=== PATIENT | male | born 1955 | race Caucasian/White ===

== ENCOUNTER 2018-09-26 10:58 | Observation (INO) | payer OTHER ==
[~2018-09-26] VITALS: Ht 193 cm; Wt 135.2 kg
[2018-09-26] VITALS (8 sets, daily range): BP systolic 106–146; BP diastolic 61–91
[2018-09-26] MEDS ORDERED: NITROGLYCERIN 0.4 MG SL TABS BTL 25'S SL ONE (10:59)
[2018-09-26] MEDS: NITROGLYCERIN 0.4 MG SL TABS BTL 25'S SL PRN ×2 (11:06→11:13)
[2018-09-26] MEDS ORDERED: ASPIRIN 81 MG CHEW (CHILDREN'S ASA) PO ONE (11:15)
[2018-09-26 11:22] LABS: HEMATOCRIT 45 % (40-54); HEMOGLOBIN 15.6 G/DL (13.3-17.7); MEAN CORPUSCULAR HEMOGLOBIN 31 PG (25-34); MEAN CORPUSCULAR HGB CONC 35 G/DL (32-36); MEAN CORPUSCULAR VOLUME 89 FL (80-99); PLATELET COUNT 162 10^3/uL (130-400); WHITE BLOOD COUNT 5.3 10^3/uL (4.3-11.0)
--- NOTE | 2018-09-26 11:22 | ED Chest Pain ---
General Chief Complaint: Chest Pain Stated Complaint: CHEST PAIN History of Present Illness Date Seen by Provider: September 26, 2018 Time Seen by Provider: 11:05 Initial Comments This is a 63 y/o m who presents to the ED for evaluation of chest pain. Pt with history of obesity, DMII, HTN, CAD s/p stent (2-3 years ago). Reports chest tightness/pain with activity and improved with rest over the past 7-10 days. Onset of chest pain with light activity today at approx 0930. Progressive with exertion, radiates up to bilateral neck and bilateral arms. Pain is now 7/10, no SOB. no nausea, no vomiting, no diarrhea. Allergies and Home Medications Allergies Coded Allergies: No Known Drug Allergies (Unverified , 09/26/18) Patient Home Medication List Home Medication List Reviewed: Yes Review of Systems Review of Systems Constitutional: No chills, No fever, No weakness Respiratory: Denies Cough, Denies Shortness of Air; SOA With Exertion; Denies SOA at Rest, Denies Stridor, Denies Wheezing Cardiovascular: Chest Pain; Denies Edema, Denies Irregular Heart Rate, Denies Lightheadedness, Denies Palpitations, Denies Syncope Gastrointestinal: Denies Abdominal Pain, Denies Constipated, Denies Diarrhea, Denies Nausea Musculoskeletal: No back pain; joint pain Skin: No pruritus, No rash Psychiatric/Neurological: No Symptoms Reported Endocrine: No Symptoms Reported All Other Systems Reviewed Negative Unless Noted: Yes Physical Exam Vital Signs Vital Signs - First Documented 09/26/18 11:03 Temp 98.4 Pulse 84 Resp 23 B/P (MAP) 186/78 (114) O2 Delivery Room Air Capillary Refill : Height, Weight, BMI Height: '" Weight: lbs. oz. kg; BMI Method: General Appearance: Mild Distress, Obese HEENT: PERRL/EOMI Neck: Full Range of Motion Respiratory: Lungs Clear, Normal Breath Sounds, No Accessory Muscle Use, No Respiratory Distress Cardiovascular: Regular Rate, Rhythm, No JVD, No Murmur, Normal Peripheral Pulses Gastrointestinal: Non Tender, Soft, Other (Exam limited by obesity ) Extremity: Normal Capillary Refill Neurologic/Psychiatric: Alert, Oriented x3, No Motor/Sensory Deficits, Normal Mood/Affect Skin: Normal Color, Warm/Dry Progress/Results/Core Measures Results/Orders Lab Results Laboratory Tests Test 09/26/18 11:09 Range/Units White Blood Count 5.3 4.3-11.0 10^3/uL Red Blood Count 5.01 4.35-5.85 10^6/uL Hemoglobin 15.6 13.3-17.7 G/DL Hematocrit 45 40-54 % Mean Corpuscular Volume 89 80-99 FL Mean Corpuscular Hemoglobin 31 25-34 PG Mean Corpuscular Hemoglobin Concent 35 32-36 G/DL Red Cell Distribution Width 13.0 10.0-14.5 % Platelet Count 162 130-400 10^3/uL Mean Platelet Volume 10.6 H 7.4-10.4 FL Neutrophils (%) (Auto) 63 42-75 % Lymphocytes (%) (Auto) 24 12-44 % Monocytes (%) (Auto) 11 0-12 % Eosinophils (%) (Auto) 1 0-10 % Basophils (%) (Auto) 1 0-10 % Neutrophils # (Auto) 3.3 1.8-7.8 X 10^3 Lymphocytes # (Auto) 1.3 1.0-4.0 X 10^3 Monocytes # (Auto) 0.6 0.0-1.0 X 10^3 Eosinophils # (Auto) 0.1 0.0-0.3 10^3/uL Basophils # (Auto) 0.0 0.0-0.1 10^3/uL Sodium Level 136 135-145 MMOL/L Potassium Level 4.2 3.6-5.0 MMOL/L Chloride Level 98 98-107 MMOL/L Carbon Dioxide Level 27 21-32 MMOL/L Anion Gap 11 5-14 MMOL/L Blood Urea Nitrogen 18 7-18 MG/DL Creatinine 0.83 0.60-1.30 MG/DL Estimat Glomerular Filtration Rate > 60 BUN/Creatinine Ratio 22 Glucose Level 277 H 70-105 MG/DL Calcium Level 9.5 8.5-10.1 MG/DL Troponin T 29 H <=15 NG/L My Orders Orders - WILL GALVEZ DO Nitroglycerin 0.4 Mg Btl 25's (Nitrostat (09/26/18 10:59) Continuous Ekg Monitoring (09/26/18 11:11) Basic Metabolic Panel (09/26/18 11:11) Cbc And Manual Diff (5/31/19 11:11) Troponin T (09/26/18 11:11) Chest 1 View Ap/Pa Only (09/26/18 11:11) Ekg Tracing (09/26/18 11:11) Aspirin Chewable Tablet (Baby Aspirin Ch (09/26/18 11:15) Nitroglycerin 0.4 Mg Btl 25's (Nitrostat (09/26/18 11:15) Medications Given in ED Current Medications Medications Dose Ordered Sig/Scooter Route Start Time Stop Time Status Last Admin Dose Admin Aspirin 324 mg ONCE ONCE PO 09/26/18 11:15 09/26/18 11:17 DC 09/26/18 11:22 324 MG Nitroglycerin 0.4 mg NEEDED PRN SL 09/26/18 11:15 09/26/18 11:13 0.4 MG Vital Signs/I&O 09/26/18 11:03 Temp 98.4 Pulse 84 Resp 23 B/P (MAP) 186/78 (114) O2 Delivery Room Air Progress Progress Note : Progress Note 11:24 Resolution of pain with NTG 0.4 x 2. Will plan for hospitalization. No EKG changes. Pending completion of labs. 11:55: Has remained chest pain free while in the ED. Mild elevation of Troponin T. Discussed with Dr. Jones, cardiovascular surgeon hospitalist at [facility] who is agreeable to admission with floor Tele bed. Requested that I speak with Dr. Lynch. Spoke with Dr. Lynch, cardiovascular surgeon [employer]. Requested that the pt be kept NPO. Arranging transportation for hospitalization. EKG : Comment 11:04: NSR, No ST segment changes. Diagnostic Imaging Diagonstic Imaging: Xray Plain Films/CT/US/NM/MRI: chest Comments No acute findings Departure Impression Primary Impression: Chest pain Disposition: ADMITTED INPATIENT Condition: Improved Admissions Decision to Admit Reason: Admit from ER (General) Decision to Admit/Date: September 26, 2018 Time/Decision to Admit Time: 11:55 WILL GALVEZ DO September 26, 2018 11:22
[2018-09-26 11:23] LABS: BASOPHILS % (AUTO) 1 % (0-10); EOSINOPHILS # (AUTO) 0.1 10^3/uL (0.0-0.3); EOSINOPHILS % (AUTO) 1 % (0-10); LYMPHOCYTES # (AUTO) 1.3 X 10^3 (1.0-4.0); LYMPHOCYTES % (AUTO) 24 % (12-44); MEAN PLATELET VOLUME 10.6 FL (7.4-10.4); MONOCYTES # (AUTO) 0.6 X 10^3 (0.0-1.0); MONOCYTES % (AUTO) 11 % (0-12); NEUTROPHILS # (AUTO) 3.3 X 10^3 (1.8-7.8); NEUTROPHILS % (AUTO) 63 % (42-75)
--- NOTE | 2018-09-26 11:35 | Diagnostic Imaging Report ---
Patient History: Chest pain and left arm pain and left jaw pain. Technique: Single frontal view of the chest Comparison: None FINDINGS: The lung volumes are normal. No focal consolidation is seen. Circumscribed round density overlying the right chest appears to have 4 central lucencies on the repeat radiograph, most consistent with a button. No large pleural effusion or pneumothorax is seen. The cardiomediastinal silhouette is normal in size and contour. No acute osseous abnormality is seen. IMPRESSION: No acute pulmonary abnormality seen. Dictated by: Dictated on workstation # [id number]
[2018-09-26 11:44] LABS: BUN/CREATININE RATIO 22; CALCIUM 9.5 MG/DL (8.5-10.1); CARBON DIOXIDE 27 MMOL/L (21-32); CHLORIDE 98 MMOL/L (98-107); CREATININE SERUM 0.83 MG/DL (0.60-1.30); GFR ESTIMATED > 60; GLUCOSE 277 MG/DL (70-105); POTASSIUM 4.2 MMOL/L (3.6-5.0); SODIUM 136 MMOL/L (135-145)
[2018-09-26 12:08] LABS: BAND NEUTROPHILS 0 %; BASOPHILS % (MANUAL) 1 %; EOSINOPHILS % (MANUAL) 1 %; LYMPHOCYTES % (MANUAL) 30 %; MONOCYTES % (MANUAL) 6 %; NEUTROPHILS % (MANUAL) 62 %
--- NOTE | 2018-09-26 13:40 | NUR ---
[address] admitted to room 418-1, with an admitting diagnosis of CHEST PAIN , on 09/26/18 from [facility] via EMS, accompanied by EMS STAFF. [address] introduced to surroundings, call light, bed controls, phone, TV, temperature control, lights, meal times, smoking policy, visitor policy, side rail policy, bathrooms and showers. Patient Rights given to patient in the handbook. [address] verbalizes understanding that [facility] is not responsible for the loss or damage to any personal effects or valuables that are kept in the patients posession during their hospitalization. [address] verbalizes understanding of Interdisciplinary Patient Education. Patient and/or family were informed about the Rapid Response Team and its purpose.
[2018-09-26] MEDS ORDERED: NS IV 1000 ML 1,000 ML ONE (13:48)
[2018-09-26] MEDS ORDERED: LIDOCAINE 1% INJ 20 ML 20 ML VIAL ONE (13:51)
[2018-09-26] MEDS ORDERED: HEParin (CATH LAB) 2,000 ML IV ONE (13:51)
[2018-09-26] MEDS ORDERED: MIDAZOLAM 5 MG/5 ML (VERSED) VIAL ONE (13:57)
[2018-09-26] MEDS ORDERED: fentaNYL INJECTION 100 MCG/2 ML AMP ONE (13:57)
--- NOTE | 2018-09-26 14:02 | Consultation-Cardiology ---
HPI-Cardiology Cardiology Consultation Date of Consultation 09/26/18 Date of Admission Time Seen by Provider: 13:58 Indication: chest pain HPI 63 years old gentleman with history of coronary artery disease, had stent done in 2007. Hypertension, hyperlipidemia and diabetes mellitus. Was in his usual state of health until the past week when he noted some back pain with exertion, reported pain similar to the pain prior to his stent. Had another episode of back pain this morning went to the chiropractor. Then started to have chest pain described as dull achiness in the retrosternal area radiating to the left shoulder and left arm. Associated with diaphoresis. Patient came to the emergency room and reported improvement after receiving sublingual nitrogly cerin. Currently having mild chest discomfort, about one to 2/10 in the retrosternal area. Home Medications & Allergies Allergies: Coded Allergies: No Known Drug Allergies (Unverified , 09/26/18) Home Medication List Reviewed: Yes QNT-Qmmjyb-Fabxyp Hx Patient Social History Marital Status: Employed/Student: employed Alcohol Use: Occasionally Uses Recreational Drug Use: No Smoking Status: Never a Smoker 2nd Hand Smoke Exposure: Yes Recent Foreign Travel: No Recent Infectious Disease Expo: No Recent Hopitalizations: No Past Medical History discussed below Family Medical History Family Medical Hx family history of hypertension Review of Systems-General Review of Systems Constitutional: see HPI; No chills; diaphoresis; No fever; malaise; No weakness EENTM: see HPI, no symptoms reported Respiratory: see HPI, dyspnea on exertion, short of breath Cardiovascular: see HPI, chest pain, edema; No Hx of Intervention, No palpitations, No syncope, No vascular heart diseas, No other Gastrointestinal: no symptoms reported, see HPI Genitourinary: no symptoms reported, see HPI Musculoskeletal: see HPI; No back pain; joint pain Skin: see HPI; No pruritus, No rash Psychiatric/Neurological: No Symptoms Reported, See HPI All Other Systems Reviewed Negative Unless Noted: Yes Reviewed Test Results Reviewed Test Results Lab Laboratory Tests Test 09/26/18 11:09 Range/Units White Blood Count 5.3 4.3-11.0 10^3/uL Red Blood Count 5.01 4.35-5.85 10^6/uL Hemoglobin 15.6 13.3-17.7 G/DL Hematocrit 45 40-54 % Mean Corpuscular Volume 89 80-99 FL Mean Corpuscular Hemoglobin 31 25-34 PG Mean Corpuscular Hemoglobin Concent 35 32-36 G/DL Red Cell Distribution Width 13.0 10.0-14.5 % Platelet Count 162 130-400 10^3/uL Mean Platelet Volume 10.6 H 7.4-10.4 FL Neutrophils (%) (Auto) 63 42-75 % Lymphocytes (%) (Auto) 24 12-44 % Monocytes (%) (Auto) 11 0-12 % Eosinophils (%) (Auto) 1 0-10 % Basophils (%) (Auto) 1 0-10 % Neutrophils # (Auto) 3.3 1.8-7.8 X 10^3 Lymphocytes # (Auto) 1.3 1.0-4.0 X 10^3 Monocytes # (Auto) 0.6 0.0-1.0 X 10^3 Eosinophils # (Auto) 0.1 0.0-0.3 10^3/uL Basophils # (Auto) 0.0 0.0-0.1 10^3/uL Neutrophils % (Manual) 62 % Lymphocytes % (Manual) 30 % Monocytes % (Manual) 6 % Eosinophils % (Manual) 1 % Basophils % (Manual) 1 % Band Neutrophils 0 % Sodium Level 136 135-145 MMOL/L Potassium Level 4.2 3.6-5.0 MMOL/L Chloride Level 98 98-107 MMOL/L Carbon Dioxide Level 27 21-32 MMOL/L Anion Gap 11 5-14 MMOL/L Blood Urea Nitrogen 18 7-18 MG/DL Creatinine 0.83 0.60-1.30 MG/DL Estimat Glomerular Filtration Rate > 60 BUN/Creatinine Ratio 22 Glucose Level 277 H 70-105 MG/DL Calcium Level 9.5 8.5-10.1 MG/DL Troponin T 29 H <=15 NG/L Physical Exam Physical Exam Vital Signs Vital Signs - First Documented 09/26/18 09/26/18 09/26/18 11:03 12:58 13:59 Temp 98.4 Pulse 84 Resp 23 B/P (MAP) 186/78 (114) Pulse Ox 97 O2 Delivery Room Air O2 Flow Rate 0.00 Capillary Refill : Less Than 3 Seconds Height, Weight, BMI Height: 6'4.00" Weight: 295lbs. oz. 133.572217gv; BMI Method:Stated General Appearance: WD/WN, Mild Distress, Obese Eyes: Bilateral Eye Normal Inspection, Bilateral Eye PERRL, Bilateral Eye EOMI HEENT: PERRL/EOMI Neck: Full Range of Motion Respiratory: Lungs Clear, Normal Breath Sounds, No Accessory Muscle Use, No Respiratory Distress Cardiovascular: Regular Rate, Rhythm, No JVD, No Murmur, Normal Peripheral Pulses Gastrointestinal: Non Tender, Soft, Other (Exam limited by obesity ) Back: Normal Inspection, No CVA Tenderness, No Vertebral Tenderness Extremity: Normal Capillary Refill Neurologic/Psychiatric: Alert, Oriented x3, No Motor/Sensory Deficits, Normal Mood/Affect Skin: Normal Color, Warm/Dry Lymphatic: No Adenopathy A/P-Cardiology Admission Diagnosis Unstable angina Coronary artery disease Hypertension Hyperlipidemia Assessment/Plan Unstable angina responsive to sublingual nitroglycerin, no acute EKG changes. Having mild discomfort pain at this point. Cannot proceed with a stress test due to the active chest pain I will proceed with urgent cardiac catheterization possible PTCA. Coronary artery disease, history of a stent done in 2007, has been following with Dr. Al. Hypertension, restart home medication monitor blood pressure Hyperlipidemia, monitor lipids Diabetes mellitus, followed and managed by primary care physician Obesity, BMI 35, we discussed weight loss and exercis Clinical Quality Measures AMI/AHF: ASA po Prior to arrival: NICKO Davis MD September 26, 2018 14:02
--- NOTE | 2018-09-26 14:02 | Cardiac Procedure Note-CS/ASA ---
Pre-Procedure Note Pre-Op Procedure Note H&P Reviewed The H&P was reviewed, patient examined and no changes noted. Date H&P Reviewed: September 26, 2018 Time H&P Reviewed: 14:02 Conscious Sedation Pre-Proced Time 14:02 ASA Score 3 For ASA 3 and 4: Consider anesthesia and medical clearance. Also, for patients with a history of failed moderate sedation consider anesthesia. Airway Lungs Heart ASA score ASA 1: a normal healthy patient ASA 2: a patient with a mild systemic disease (mid diabetes, controlled hypertension, obesity x ASA 3: a patient with a severe systemic disease that limits activity (angina, COPD, prior Myocardial infarction) ASA 4: a patient with an incapacitating disease that is a constant threat to life (CHF, renal failure) ASA 5: a moribund patient not expected to survive 24 hrs. (ruptured aneurysm) ASA 6: a declared brain- patient whose organs are being harvested. For emergent operations, add the letter E after the classification Mallampati Classification Grade 3 Sedation Plan Analgesia, Amnesia, Plan communicated to team members, Discussed options with patient/fam, Discussed risks with patient/fam The patient is an appropriate candidate to undergo the planned procedure, sedation, and anesthesia. The patient immediately re-assessed prior to indication. NICKO THAKUR MD September 26, 2018 14:02
--- NOTE | 2018-09-26 14:05 | NUR ---
Consent obtained for heart cath.
[2018-09-26] MEDS ORDERED: ATOR80TA64 PO (14:14)
[2018-09-26] MEDS ORDERED: GLIP-173 PO (14:14)
[2018-09-26] MEDS ORDERED: SULI150T PO (14:14)
[2018-09-26] MEDS ORDERED: LEVO50TA6 PO (14:14)
[2018-09-26] MEDS ORDERED: LISI-556 PO (14:14)
[2018-09-26] MEDS ORDERED: SERT100T8 PO (14:14)
[2018-09-26] MEDS ORDERED: ASPI-983 PO (14:14)
[2018-09-26] MEDS ORDERED: GLUC1TAB20 PO (14:14)
[2018-09-26] MEDS ORDERED: MULT1TAB69 PO (14:14)
[2018-09-26] MEDS ORDERED: NS IV 1000 ML 1,000 ML IV SCH ×2 (14:15→15:06)
[2018-09-26] MEDS ORDERED: morphine INJ 4 MG/ML 1 ML (VIAL/SYRINGE) IV PRN (14:15)
[2018-09-26] MEDS ORDERED: CATHETER FLUSH 10 ML SYR IV PRN (14:15)
[2018-09-26] MEDS ORDERED: NITROGLYCERIN 0.4 MG SL TABS BTL 25'S SL PRN (14:15)
--- NOTE | 2018-09-26 14:17 | NUR ---
Pt to labor representative
[2018-09-26] MEDS ORDERED: [UNRECOGNIZED DRUG - OTHER] (14:18)
[2018-09-26 14:24] LABS: INR 1.1 (0.8-1.4); PROTHROMBIN TIME PATIENT 14.2 SEC (12.2-14.7)
[2018-09-26] MEDS ORDERED: NITRO DRIP 25000 MCG/D5W 250 ML IV ONE (14:37)
[2018-09-26] MEDS ORDERED: HEParin 1000 UNIT/ML (10ML VIAL) FOR BOLUS ONE (14:37)
[2018-09-26] MEDS ORDERED: EPTIFIBATIDE BOLUS 20 ML IV ONE (14:46)
[2018-09-26] MEDS ORDERED: EPTIFIBATIDE BOLUS 10 ML IV ONE (14:51)
[2018-09-26] MEDS ORDERED: TICAGRELOR 90 MG TABLET (BRILINTA) PO ONE (15:07)
[2018-09-26] MEDS ORDERED: PATIENT MAY USE OWN MEDS, ALL PO SCH (15:15)
--- NOTE | 2018-09-26 15:15 | Cardiac Cath Report ---
Cardiac Cath Report Physician (s)/Hide Curer (s) Physician NICKO THAKUR MD Pre-Procedure Diagnosis Pre-Procedure Diagnosis: unstable angina Post-Procedure Note Procedure Start Date: September 26, 2018 Name of Procedure: Left heart catheterization Left ventriculogram Bare-metal stent to the distal LAD 2 x 12 mm mini vision Drug-eluting stent to the mid to distal LAD not overlapping with percent 2.5 x 18 Dania Findings/Procedure Note PROCEDURE NOTE: 63 years old gentleman was admitted from [place] emergency room for unstable angina, was having active chest pain, reporting some improvement with nitroglycerin but still having active chest pain. Decided to proceed with emergency cardiac catheterization. After explaining the procedure to the patient, all pros and cons were explained, all questions were answered. The patient signed the consent and then he was placed on the cardiac catheterization laboratory. Groin was prepped SL fashion local anesthesia was used. Sheath placed in the right femoral artery. Florecita right and left catheter were used to access the coronary system. Pigtail was used to access the left ventricular cavity. Left ventriculogram was done Patient was given 7000 units of heparin, FL guide was advanced to the left coronary system BMW wire was advanced through the left system and parked distally, patient was noted to have severe stenosis at the distal portion of the LAD was almost occluded with the wire only. I proceeded carefully with positioning a small stent bare metal stent 2 x 12 mini vision expanded to 2.15 with good results, proximal to that there was another lesion that appeared to be significant, I proceeded with deployment of Dania 2.5 x 18 mm drug-eluting stent expanded to 2.65 mm with excellent results. Excellent SEVEN-3 flow postintervention At the end of the procedure the sheath was removed. Closure device was done FINDINGS: Hemodynamics LV 143/15, end-diastolic pressure 15 Aorta 119/69 mean of 61 ANATOMY: Left Main has mild to moderate ostial stenosis Left Anterior Descending has moderate stenosis proximally, stent is patent in the midportion distally there is stool segment of severe stenosis and subtotal occlusion. Successful deployment of bare metal stent 2 x 12 mm mini vision in the distal portion and proximal to that drug-eluting stent Dania 2.5 x 18 mm not overlapping stents with excellent results Left Circumflex is moderate in size with moderate stenosis at the midportion, there is an aneurysmal dilatation distally. Right Coronory Artery there is moderate in size with mild disease nonobstructive disease LV Gram is normal in size with normal contraction. Estimated ejection fraction 60 percent CONCLUSION: 1. Acute coronary syndrome with subtotal occlusion at the distal LAD and severe stenosis at the mid to distal portion successful deployment of 2 stents drug- eluting stent 2.5 x 18 mm at the mid to distal portion Dania and distally bare- metal stent 2 x 12 mm mini vision with excellent results. 2. Mild to moderate stenosis at the ostial left main, proximal LAD, mid to distal circumflex artery. 3. Dominant right coronary artery with [id number] disease nonobstructive disease 4. Normal left ventricular size and systolic function estimated ejection fraction 60 percent DISCUSSION AND RECOMMENDATION: I will continue with maximizing medical therapy. Patient was started on aspirin and Brilinta. Evaluate lipid profile in a.m., started on Lipitor 80 mg daily. Anesthesia Type: Conscious Sedation Estimated blood loss (mL): 25 ml Contrast Amount: 160 ml Total Radiation Dose: 1579 mGy Post-Procedure Diagnosis Post-operative diagnosis: Unstable angina Coronary artery disease Hypertension Hyperlipidemia NICKO THAKUR MD September 26, 2018 15:15
[2018-09-26] MEDS ORDERED: DULA1.5P2 SQ (15:57)
--- NOTE | 2018-09-26 15:58 | NUR ---
PATIENT HAD A DETAILED MEDICATION LIST ON HIS PHONE. HE STATES HE IS NO LONGER TAKING THE JANUVIA. HE ALSO IS TAKING AN INJECTABLE. I CALLED CHRISTA AND VERIFIED HE FILLED TRULICITY 1.5MG WEEKLY 07-14-18 FOR AN 84 DAY SUPPLY. HE TAKES ASPIRIN 81MG DAILY, MTV DAILY, AND GLUCOSAMINE/CHONDROITIN BID OTC.
[2018-09-26] MEDS ORDERED: ATORVASTATIN 80 MG (LIPITOR) TABLET PO SCH (21:00)
[2018-09-26] MEDS ORDERED: SERTRALINE 100 MG (ZOLOFT) TAB PO SCH (21:00)
[2018-09-26] MEDS: CATHETER FLUSH 10 ML SYR IV SCH (21:23)
[2018-09-26] MEDS: TICAGRELOR 90 MG TABLET (BRILINTA) PO SCH (21:23)
[2018-09-26] MEDS ORDERED: RT-ALBUTEROL SULF 2.5 MG/3 ML PRE-MIX VIAL INH PRN ×2 (22:00→22:15)
--- NOTE | 2018-09-26 22:49 | NUR ---
Oxygen @ 2l/nc applied at this time. Patient uses home c-pap machine and does not have it with him at this time.
[2018-09-27 03:32] LABS: HEMOGLOBIN 14.7 G/DL (13.3-17.7); MEAN PLATELET VOLUME 10.4 FL (7.4-10.4); RED CELL DISTRIBUTION WIDTH 12.8 % (10.0-14.5); WHITE BLOOD COUNT 6.5 10^3/uL (4.3-11.0)
[2018-09-27 03:45] VITALS: BP 103/53
[2018-09-27 04:01] LABS: BUN/CREATININE RATIO 17; CALCIUM 9.4 MG/DL (8.5-10.1); CARBON DIOXIDE 23 MMOL/L (21-32); CHLORIDE 105 MMOL/L (98-107); CHOLESTEROL 151 MG/DL (< 200); CREATININE SERUM 0.88 MG/DL (0.60-1.30); GFR ESTIMATED > 60; GLUCOSE 158 MG/DL (70-105); HDL CHOLESTEROL 30 MG/DL (40-60); POTASSIUM 4.2 MMOL/L (3.6-5.0); SODIUM 137 MMOL/L (135-145); TRIGLYCERIDES 330 MG/DL (<150); VLDL CHOLESTEROL 66 MG/DL (5-40)
[2018-09-27] MEDS: CATHETER FLUSH 10 ML SYR IV SCH (06:42)
--- NOTE | 2018-09-27 06:42 | NUR ---
Patient refused MVI, states that he will take at home this am.
[2018-09-27] MEDS ORDERED: MULTIVIT W/MINERALS TAB (THERAGRAN M) PO SCH (07:00)
[2018-09-27] MEDS: TICAGRELOR 90 MG TABLET (BRILINTA) PO SCH (08:14)
[2018-09-27 08:30] VITALS: BP 133/84
[2018-09-27] MEDS ORDERED: lisINopril 5 MG (PRINIVIL) TABLET PO SCH (09:00)
[2018-09-27] MEDS ORDERED: ASPIRIN E.C. 81 MG (ECOTRIN) TAB PO SCH ×2 (09:00)
[2018-09-27] MEDS ORDERED: LEVOTHYROXINE 50 MCG (LEVOTHROID) TAB PO SCH (09:00)
[2018-09-27 11:40] VITALS: BP 132/88
--- NOTE | 2018-09-27 11:50 | Short Stay Summary-Hospitalist ---
History of Present Illness HPI/Chief Complaint CC: Angina HPI: This is a 63yoWM clinic patient of Dr Durham in [place], [place] who has a h/o stent placement in 2007 and has had regular stress tests every other year due to mandate from his bill company since that time and who also has DM, HTN, HLP and MANDA maintained on CPAP who presented to the [facility] ER with classic anginal symptoms in need of cardiac cath which was completed yesterday afternoon by Dr Lynch and resulted in intervention with stent placement and has remained stable since that time. Currently he is no longer having pain and his is at bedside. Patient will be DC today with close f/u with Cardiology and PCP. Source: patient Exam Limitations: no limitations Date Seen 09/27/18 Time Seen by a Provider: 12:00 Attending Physician Anette Jones DO PCP No,Local Physician Referring Physician Date of Admission September 26, 2018 at 12:30 Home Medications & Allergies Home Medications Reviewed patient Home Medication Reconciliation performed by pharmacy medication reconciliations non destructive evaluation technician and/or nursing. Patients Allergies have been reviewed. Allergies Allergies Coded Allergies No Known Drug Allergies (Unverified09/26/18) Past Khciqri-Iujkta-Jtfahk Hx Past Med/Social Hx: Reviewed Nursing Past Med/Soc Hx, Reviewed and Corrections made Patient Social History Marrital Status: Employed/Student: employed (truck rental clerk) Alcohol Use: Occasionally Uses Recreational Drug Use: No Smoking Status: Never a Smoker 2nd Hand Smoke Exposure: Yes Recent Foreign Travel: No Contact w/other who traveled: No Recent Hopitalizations: No Recent Infectious Disease Expo: No Seasonal Allergies Seasonal Allergies: No Past Medical History Surgeries: Coronary Stent Respiratory: Sleep Apnea Currently Using CPAP: Yes Cardiac: Coronary Artery Disease, Heart Attack, High Cholesterol, Hypertension Musculoskeletal: Arthritis Endocrine: Diabetes, Non-Insulin dep History of Blood Disorders: No Review of Systems Constitutional: see HPI EENTM: no symptoms reported Respiratory: no symptoms reported Cardiovascular: chest pain Gastrointestinal: no symptoms reported Genitourinary: no symptoms reported Musculoskeletal: no symptoms reported Skin: no symptoms reported Psychiatric/Neurological: No Symptoms Reported All Other Systems Reviewed Negative Unless Noted: Yes Physical Exam Physical Exam Vital Signs Vital Signs - First Documented 09/26/18 09/26/18 09/26/18 11:03 12:58 13:59 Temp 98.4 Pulse 84 Resp 23 B/P (MAP) 186/78 (114) Pulse Ox 97 O2 Delivery Room Air O2 Flow Rate 0.00 Capillary Refill : Less Than 3 Seconds Height, Weight, BMI Height: 6'4.00" Weight: 298lbs. oz. 135.168457ao; BMI Method:Stated General Appearance: No Apparent Distress, WD/WN, Chronically ill, Obese Eyes: Bilateral Eye Normal Inspection, Bilateral Eye PERRL, Bilateral Eye EOMI HEENT: PERRL/EOMI, Normal ENT Inspection, Pharynx Normal Neck: Full Range of Motion, Normal Inspection, Non Tender, Supple Respiratory: Lungs Clear, Normal Breath Sounds, No Accessory Muscle Use, No Respiratory Distress Cardiovascular: Regular Rate, Rhythm, No Edema, No Gallop, No JVD, No Murmur, Normal Peripheral Pulses Gastrointestinal: Non Tender, Soft, Other (Exam limited by obesity ) Back: Normal Inspection, No CVA Tenderness, No Vertebral Tenderness Extremity: Normal Capillary Refill Neurologic/Psychiatric: Alert, Oriented x3, No Motor/Sensory Deficits, Normal Mood/Affect Skin: Normal Color, Warm/Dry Lymphatic: No Adenopathy Results Results/Procedures Labs Laboratory Tests 09/26/18 11:09 09/27/18 03:20 Patient resulted labs reviewed. Short Stay Diagnosis Discharge Diagnosis-Short Stay Admission Diagnosis Assessment: NSTEMI Unstable angina h/o CAD w/stent 2007 s/p cardiac cath with stent placement uncomplicated by Dr Lynch POD # 1 HTN HLP MANDA on CPAP DM Plan: Reviewed meds [place] home Final Discharge Diagnosis Assessment: NSTEMI Unstable angina h/o CAD w/stent 2007 s/p cardiac cath with stent placement uncomplicated by Dr Lynch POD # 1 HTN HLP MANDA on CPAP DM Plan: Reviewed meds [place] home Conclusion Plan DC home Diagnosis/Problems Diagnosis/Problems (1) Chest pain Status: Acute Qualifiers: Qualified Codes: I20.0 - Unstable angina (2) S/P cardiac catheterization Status: Acute (3) Stented coronary artery Status: Acute (4) MANDA on CPAP Status: Chronic (5) Hypertension Status: Chronic Qualifiers: Qualified Codes: I10 - Essential (primary) hypertension (6) Hyperlipidemia Status: Chronic Qualifiers: Qualified Codes: E78.2 - Mixed hyperlipidemia (7) Diabetes mellitus Status: Chronic Qualifiers: Qualified Codes: E11.59 - Type 2 diabetes mellitus with other circulatory complications (8) Obesity (BMI 30-39.9) Status: Chronic Clinical Quality Measures AMI/AHF: ASA po Prior to arrival: No DVT/VTE Risk/Contraindication: Risk Factor Score Per Nursin RFS Level Per Nursing on Admit: 2=Moderate ANETTE JONES DO Sep 27, 2018 11:50
[2018-09-27] MEDS ORDERED: TICA90TA PO ×2 (13:34→13:55)
--- NOTE | 2018-09-27 13:39 | Progress Note-Cardiology ---
Cardiology SOAP Progress Note Subjective: No cp or palp or syncope or groin discomfort Feels well and wishes to go home Objective: I&O/Vital Signs 09/27/18 09/27/18 09/27/18 09/27/18 03:45 07:00 08:30 08:36 Temp 97.8 96.9 Pulse 63 74 72 Resp 18 18 B/P (MAP) 103/53 (70) 133/84 (100) Pulse Ox 98 94 94 O2 Delivery Nasal Cannula Room Air Room Air O2 Flow Rate 2.00 09/27/18 09/27/18 11:40 12:50 Temp 97.2 Pulse 73 68 Resp 18 B/P (MAP) 132/88 (103) Pulse Ox 96 O2 Delivery Room Air 09/27/18 00:00 Intake Total 480 ml Balance 480 ml Weight (Pounds): 298 Weight (Calculated Kilograms): 135.070602 Condition: DP/PT pulses palpable Bruising: mild bruising Constitutional: AAO x 3, well-developed, well-nourished Respiratory: No accessory muscle use; other (good bilat air entry ) Cardiovascular: regular rate-rhythm, S1 and S2, systolic murmur (faint KENDAL at card base) Gastrointestional: No tender; soft; No guarding, No rebound; audible bowel sounds Extremities: No clubbing, No cyanosis, No significant edema Neurologic/Psychiatric: oriented x 3, grossly intact, power is 5/5 both on sides Skin: No rash on exposed areas, No ulcerations on exposed areas Results/Procedures: Labs Laboratory Tests 09/26/18 14:07: Prothrombin Time 14.2, INR Comment 1.1, Activated Partial Thromboplast Time 28, Troponin I < 0.028 09/26/18 17:08: Troponin I < 0.028 09/27/18 03:20: White Blood Count 6.5, Red Blood Count 4.81, Hemoglobin 14.7, Hematocrit 42, Mean Corpuscular Volume 88, Mean Corpuscular Hemoglobin 31, Mean Corpuscular Hemoglobin Concent 35, Red Cell Distribution Width 12.8, Platelet Count 149, Mean Platelet Volume 10.4, Sodium Level 137, Potassium Level 4.2, Chloride Level 105, Carbon Dioxide Level 23, Anion Gap 9, Blood Urea Nitrogen 15, Creatinine 0.88, Estimat Glomerular Filtration Rate > 60, BUN/Creatinine Ratio 17, Glucose Level 158H, Calcium Level 9.4, Triglycerides Level 330H, Cholesterol Level 151, LDL Cholesterol Direct 84, VLDL Cholesterol 66H, HDL Cholesterol 30L A/P: Assessment: Acute coronary syndrome, treated with PCI to LAD on 09/26/18 (Dr Lynch) Card cath of 09/26/18: subtotal occlusion at the distal LAD and severe stenosis at the mid to distal portion; mid treated with drug-eluting stent 2.5 x 18 mm Dania and distal with bare-metal stent 2 x 12 mm MiniVision. Mild to moderate stenosis at the ostial left main, proximal LAD, mid to distal circumflex artery. Dominant right coronary artery with hfci-ae-mocriaep disease nonobstructive disease. Normal left ventricular size and systolic function estimated ejection fraction 60 percent Hyperlipidemia DM II Plan: * I reviewed his records, spoke with the patient, and examined him * I discussed the interventions undertaken * I discussed the med changes and the need for compliance * I discussed risk factor mod * I advised outpt card f/u with Dr Lynch within two weeks (or earlier, if needed) Clinical Quality Measures AMI/AHF: ASA po Prior to arrival: SHAHZAD Tuttle MD FACP FAC CCDS Sep 27, 2018 13:39
--- NOTE | 2018-09-27 13:55 | NUR ---
[address] demonstrates understanding of discharge instructions and accurately returns instructions upon questioning. Copy of Post-Discharge Instructions and Medication Discharge Instructions given to PT. [address] is able to manage continuing needs after discharge. Patients belongings returned to PT. Skin dry and intact; no breakdown noted. Patient discharged from [facility]- on 09/27/18 at [address] left floor via AMBULATION, accompanied by STAFF/.
--- OUTSIDE RECORDS SUMMARY | 2018-09-30 20:27 | XMS REPORT | Continuity of Care Document ---
Author Organization Unknown Address Unknown Allergies There is no data. Medications There is no data. Problems There is no data. Procedures There is no data. Results There is no data. Encounters ACCT No. Visit Date/Time Discharge Status Pt. Type Provider Facility Loc./Unit Complaint [id number] 08/05/2018 14:45:00 08/05/2018 23:59:59 CLS Outpatient SHAHLA NAVAS DO [facility]
== END 2018-09-27 13:36 | disposition home or self-care (01) ==
LOC: ER FS 11:00 → 4TH 12:16 → UNDOADMOB 12:16 → 4TH 12:30 → UNDOADMOB 12:30 → 4TH 13:40 → ICU 15:30 → UNDODISOB 09-27 13:55
PROVIDERS: ADMIT Internal Medicine; ATTEND Internal Medicine
DX: I21.4 Non-ST elevation (NSTEMI) myocardial infarction (principal); I25.10 Atherosclerotic heart disease of native coronary artery without angina pectoris; I10 Essential (primary) hypertension; E78.5 Hyperlipidemia, unspecified; E11.9 Type 2 diabetes mellitus without complications; G47.33 Obstructive sleep apnea (adult) (pediatric); E66.9 Obesity, unspecified; Z68.35 Body mass index [BMI] 35.0-35.9, adult; Z95.5 Presence of coronary angioplasty implant and graft
CPT/HCPCS: 36415; 71045; 80048; 80061; 84484; 85007; 85027; 85610; 85730; 93005; 93458

== ENCOUNTER → 2019-09-30 | Outpatient (CLI) | payer OTHER ==
[~2019-09-30] VITALS: Ht 193 cm; Wt 135.0 kg
[~2019-09-30] MED LIST: ASPI-983 PO; ATOR80TA64 PO; CATHETER FLUSH 10 ML SYR IV PRN; DULA1.5P2 SQ; GLIP-173 PO; GLUC1TAB20 PO; LEVO50TA6 PO; LISI-556 PO; MULT1TAB69 PO; REGADENOSON 0.4 MG/5 ML SYR (LEXISCAN) IV ONE; SERT100T8 PO; SULI150T PO; TICA90TA PO; [UNRECOGNIZED DRUG - OTHER]
[2019-09-30 15:31] VITALS: BP 156/94
--- NOTE | 2019-09-30 15:31 | Cardiology Stress Test Report ---
Stress Test Report Date of Procedure/Referring: Date of Procedure: Sep 30, 2019 PCP Nicko Lynch MD Admitting Physician No,Local Physician Indications: Coronary artery disease Baseline Heart Rate: 71 Baseline Blood Pressure: Blood Pressure Systolic: 156 Blood Pressure Diastolic: 94 Baseline EKG: Baseline EKG: normal sinus rhythm Summary: Patient received 0.4 mg Lexiscan for stress test, ECG, heart rate and blood pressure were monitored continuously. Resting and stress dose of radio tracer were injected, imaging was acquired and reviewed in short axis, horizontal long axis and vertical long axis views. TID 1.06 SSS 2 SDS 2 EF 44% Conclusion: 1. Patient tolerated Lexiscan well 2. Diaphragmatic attenuation with mild decrease uptake involving the mid to apical inferior wall with subtle reversibility, could be due to diaphragmatic attenuation. 3. Normal left ventricular size with mild hypokinesia involving the lateral wall, cocci ejection fraction 44 percent NICKO LYNCH MD Sep 30, 2019 3:31 pm
== END ==
LOC: CARD 09:38
PROVIDERS: ATTEND Internal Medicine Cardiovascular Disease
DX: I11.9 Hypertensive heart disease without heart failure (principal); I25.10 Atherosclerotic heart disease of native coronary artery without angina pectoris; E78.1 Pure hyperglyceridemia
CPT/HCPCS: 78452; 93017; 93306

== ENCOUNTER → 2019-11-18 | Outpatient (CLI) | payer OTHER ==
[~2019-11-18] MED LIST changes: -CATHETER FLUSH 10 ML SYR IV PRN; +MULT-567 PO; -MULT1TAB69 PO; -REGADENOSON 0.4 MG/5 ML SYR (LEXISCAN) IV ONE
--- NOTE | 2019-11-18 11:14 | Diagnostic Imaging Report ---
INDICATION: Abdominal pain. Pulsatile abdomen. PROCEDURE: Ultrasound abdomen complete. TECHNIQUE: Multiple Real-time grayscale and color Doppler images were obtained of the abdomen in various projections. COMPARISON: None. FINDINGS: Liver: Diffusely echogenic parenchyma. No focal lesion is seen. Appropriate hepatopetal flow is demonstrated in the main portal vein. Gallbladder: Normal. No stones or gallbladder wall thickening. No pericholecystic fluid. Negative sonographic James's sign. Biliary Tree: No intrahepatic biliary ductal dilatation is identified. The extrahepatic biliary ducts are not well seen. Pancreas: Obscured by overlying bowel gas. Spleen: Top normal in size with the splenic length measuring 13.6 cm. No focal lesion is seen. Right kidney: Normal parenchymal echotexture and thickness. No hydronephrosis, stone or mass. Incidental note is made of a cyst measuring up to 2 cm in the upper pole. Left kidney: Normal parenchymal echotexture and thickness. No hydronephrosis, stone or mass. Aorta: The proximal and mid aorta are obscured by overlying bowel gas. The distal aorta is normal in caliber measuring 1.9 cm. Inferior vena cava: The IVC is not well evaluated and largely obscured by bowel gas. The intrahepatic portion of the IVC appears normal in caliber. Other: No free fluid. IMPRESSION: Echogenic liver, likely reflecting hepatic steatosis or other hepatocellular disease. The proximal and mid aorta is obscured by overlying bowel gas and not evaluated. Only the distal aorta is well seen and demonstrates normal caliber measuring 1.9 cm in diameter. The pancreas and extrahepatic biliary ducts are also not well seen on this exam. Dictated by: Dictated on workstation # [id number]
== END ==
LOC: RAD 06:40
PROVIDERS: ATTEND Internal Medicine Cardiovascular Disease
DX: R19.8 Other specified symptoms and signs involving the digestive system and abdomen (principal); R10.9 Unspecified abdominal pain
CPT/HCPCS: 76700

== ENCOUNTER → 2019-11-25 | Outpatient (CLI) | payer OTHER ==
[~2019-11-25] MED LIST changes: +CATHETER FLUSH 10 ML SYR IV PRN; +HOLD METFORMIN - RECEIVED CONTRAST 20 ML VIAL IV SCH; +IOHEXOL 350 MG/ML 100 ML (OMNIPAQUE 350) VIAL IV ONE; +NS 100 ML (IVPB) BAG IV ONE
[2019-11-25 13:37] LABS: CREATININE SERUM 1.22 MG/DL (0.60-1.30)
--- NOTE | 2019-11-25 15:09 | Diagnostic Imaging Report ---
EXAMINATION: CT Abdomen and Pelvis with intravenous contrast. TECHNIQUE: Multiple contiguous axial images were obtained through the abdomen and pelvis after the uneventful administration of intravenous contrast. All CT scans use one or more of the following dose optimizing techniques: automated exposure control, MA and/or KvP adjustment based on a patient size and exam type, or iterative reconstruction. HISTORY: Pulsating abdomen, evaluate for aneurysm. COMPARISON: None available. FINDINGS: Limited views of the lower thorax show coronary artery calcifications. The liver is normal without focal lesion. There is no biliary ductal dilation. Gallbladder is normal. Pancreas is normal. Spleen is normal. Adrenal glands are normal. The kidneys are normal. There is no hydronephrosis. Urinary bladder is normal. Visualized bowel is normal in caliber without obstruction or inflammation. No free fluid or air. No abdominal or pelvic lymphadenopathy. Aorta is normal in caliber without aneurysm. There are no suspicious osseus lesions. There is posterior decompression of the lumbar spine. IMPRESSION: 1. Normal-caliber aorta. Dictated by: Dictated on workstation # [id number]
== END ==
LOC: RAD 14:15
PROVIDERS: ATTEND Internal Medicine Cardiovascular Disease
DX: Z13.6 Encounter for screening for cardiovascular disorders (principal); I10 Essential (primary) hypertension; I25.10 Atherosclerotic heart disease of native coronary artery without angina pectoris; E78.1 Pure hyperglyceridemia; R19.8 Other specified symptoms and signs involving the digestive system and abdomen; R10.9 Unspecified abdominal pain
CPT/HCPCS: 36415; 74177; 82565; 84520

== ENCOUNTER 2022-04-18 14:33 | Emergency (ER) | payer MEDICARE, OTHER ==
[~2022-04-18] VITALS: Ht 193 cm; Wt 132.0 kg
[~2022-04-18 14:33] MED LIST changes: +ASPI-1238 PO; -ASPI-983 PO; -CATHETER FLUSH 10 ML SYR IV PRN; -GLUC1TAB20 PO; +GLUC1TAB21 PO; -HOLD METFORMIN - RECEIVED CONTRAST 20 ML VIAL IV SCH; -IOHEXOL 350 MG/ML 100 ML (OMNIPAQUE 350) VIAL IV ONE; -LISI-556 PO; +LISI5TAB20 PO; -NS 100 ML (IVPB) BAG IV ONE; +SERT-414 PO; -SERT100T8 PO
[2022-04-18] MEDS ORDERED: ASPIRIN 81 MG CHEW (CHILDREN'S ASA) PO ONE (14:45)
[2022-04-18 14:53] LABS: BASOPHILS % (AUTO) 1 % (0-10); EOSINOPHILS # (AUTO) 0.2 10^3/uL (0.0-0.3); EOSINOPHILS % (AUTO) 2 % (0-10); HEMATOCRIT 45 % (40-54); HEMOGLOBIN 15.4 g/dL (13.3-17.7); LYMPHOCYTES # (AUTO) 1.4 10^3/uL (1.0-4.0); LYMPHOCYTES % (AUTO) 18 % (12-44); MEAN CORPUSCULAR HEMOGLOBIN 31 pg (25-34); MEAN CORPUSCULAR HGB CONC 35 g/dL (32-36); MEAN CORPUSCULAR VOLUME 89 fL (80-99); MEAN PLATELET VOLUME 9.8 fL (9.0-12.2); MONOCYTES # (AUTO) 0.8 10^3/uL (0.0-1.0); MONOCYTES % (AUTO) 10 % (0-12); NEUTROPHILS # (AUTO) 5.3 10^3/uL (1.8-7.8); NEUTROPHILS % (AUTO) 69 % (42-75); PLATELET COUNT 185 10^3/uL (130-400); WHITE BLOOD COUNT 7.7 10^3/uL (4.3-11.0)
[2022-04-18 15:09] LABS: ALBUMIN 4.3 GM/DL (3.2-4.5); POTASSIUM 4.4 MMOL/L (3.6-5.0)
[2022-04-18 15:09] LABS: BILIRUBIN,URINE NEGATIVE (NEGATIVE); CLARITY,URINE CLEAR; COLOR,URINE YELLOW; GLUCOSE, URINE (UA) 3+ (NEGATIVE); KETONES,URINE NEGATIVE (NEGATIVE); LEUKOCYTE ESTERASE ,URINE NEGATIVE (NEGATIVE); NITRITE,URINE NEGATIVE (NEGATIVE); PH,URINE 5.5 (5-9); PROTEIN,URINE NEGATIVE (NEGATIVE)
--- NOTE | 2022-04-18 15:09 | Diagnostic Imaging Report ---
INDICATION: Chest pain. Frontal chest obtained at 2:47 p.m. and compared with 09/26/2018. FINDINGS: Heart is borderline in size. There is poor inspiration, but there is minimal bibasilar atelectasis. There is no pneumothorax or pleural fluid or camilo consolidation. IMPRESSION: Borderline heart size. Very poor inspiration with mild bibasilar atelectasis. No overt consolidation or pleural fluid. Dictated by: Dictated on workstation # [id number]
[2022-04-18 15:10] LABS: CALCIUM 9.7 MG/DL (8.5-10.1)
[2022-04-18 15:11] LABS: TOTAL PROTEIN 6.9 GM/DL (6.4-8.2)
[2022-04-18 15:12] LABS: PROTHROMBIN TIME PATIENT 13.8 SEC (12.2-14.7)
[2022-04-18 15:13] LABS: BILIRUBIN,TOTAL 0.4 MG/DL (0.1-1.0)
[2022-04-18 15:15] LABS: CREATININE SERUM 1.12 MG/DL (0.60-1.30)
[2022-04-18 15:18] LABS: MAGNESIUM 1.8 MG/DL (1.6-2.4)
--- NOTE | 2022-04-18 15:19 | ED Chest Pain ---
General Chief Complaint: Chest Pain Stated Complaint: CHEST PAINS Nursing Triage Note: ARRIVED VIA WC WITH COMPLAINTS OF CHEST PAIN STARTING YESTERDAY. TODAY PAIN STARTED IN THE RIGHT SIDE OF HIS NECK AND DOWN BOTH ARMS. History of Present Illness Date Seen by Provider: Apr 18, 2022 Time Seen by Provider: 14:57 Initial Comments 66-year-old male with PMH of CAD with stents 2 to 3 years back/HTN/DM2/obesity, is here with complaints of left-sided chest pain which is radiating up his right neck and both of his arms. Patient's pain began yesterday and has been intermittent in nature. In the ER patient does not have any pain. Denies fever, shortness of breath, diarrhea, abdominal pain, diaphoresis, dizziness. 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 Patient normally takes a baby aspirin every day Allergies and Home Medications Allergies Coded Allergies: No Known Drug Allergies (Unverified , 09/26/18) Patient Home Medication List Home Medication List Reviewed: Yes Aspirin (Aspirin EC) 81 Mg Tablet.dr, 81 MG PO DAILY, (Reported) Entered as Reported by: HELLEN CEVALLOS on 09/26/181413 Atorvastatin Calcium (Lipitor) 80 Mg Tablet, 80 MG PO HS, (Reported) Entered as Reported by: HELLEN CEVALLOS on 09/26/18 141 Dulaglutide (Trulicity) 1.5 Mg/0.5 Ml Pen.injctr, 1.5 MG SQ WEEK, (Reported) Entered as Reported by: HELLEN CEVALLOS on 09/26/18 1557 Glipizide (Glipizide Xl) 10 Mg Tab.er.24, 20 MG PO DAILY, (Reported) Entered as Reported by: HELLEN CEVALLOS on 09/26/18 141 Gluc Lorenzana/Chondro Lorenzana A/Vit C/Mn (Glucosamine Chondroitin Tab) 1 Each Tablet, 1 TAB PO BID, (Reported) Entered as Reported by: HELLEN CEVALLOS on 09/26/181413 Levothyroxine Sodium (Levothyroxine Sodium) 50 Mcg Tablet, 50 MCG PO DAILY, (Reported) Entered as Reported by: HELLEN CEVALLOS on 09/26/18 141 Lisinopril (Lisinopril) 5 Mg Tablet, 5 MG PO DAILY, (Reported) Entered as Reported by: HELLEN CEVALLOS on 09/26/18 1414 Multivitamin (Multivitamins) 1 Each Tablet, 1 TAB PO DAILY, (Reported) Entered as Reported by: HELLEN CEVALLOS on 09/26/18 141 Sertraline HCl (Sertraline HCl) 100 Mg Tablet, 100 MG PO HS, (Reported) Entered as Reported by: HELLEN CEVALLOS on 09/26/18 141 Ticagrelor (Brilinta) 90 Mg Tablet, 90 MG PO BID Prescribed by: CHRISTA AUGUST on 09/27/18 1355 Review of Systems Review of Systems Constitutional: no symptoms reported EENTM: No Symptoms Reported Respiratory: No Symptoms Reported Cardiovascular: Chest Pain Gastrointestinal: No Symptoms Reported Genitourinary: No Symptoms Reported Musculoskeletal: no symptoms reported Skin: no symptoms reported Psychiatric/Neurological: No Symptoms Reported Endocrine: No Symptoms Reported Hematologic/Lymphatic: No Symptoms Reported Past Wwxfyjn-Hzocpp-Pmcdeb Hx Patient Social History Tobacco Use?: No Substance use?: No Alcohol Use?: Yes Alcohol Frequency: Rarely Immunizations Up To Date Second COVID19 Vaccination Michael: UNKOWN 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 Seasonal Allergies Seasonal Allergies: No Past Medical History Surgeries: Yes Coronary Stent Respiratory: No Currently Using CPAP: Yes Cardiac: Yes Coronary Artery Disease, Heart Attack, High Cholesterol, Hypertension Neurological: No Genitourinary: No Gastrointestinal: No Musculoskeletal: Yes Arthritis Endocrine: Yes Diabetes, Non-Insulin dep HEENT: No Cancer: No Psychosocial: No Integumentary: No Blood Disorders: No Physical Exam Vital Signs Vital Signs - First Documented 04/18/22 14:35 Temp 36.5 Pulse 70 Resp 16 B/P (MAP) 165/86 (112) Pulse Ox 97 O2 Delivery Room Air Capillary Refill : Less Than 3 Seconds Height, Weight, BMI Height: 6'4.00" Weight: 298lbs. oz. 135.600833cb; 35.00 BMI Method:Stated General Appearance: No Apparent Distress, WD/WN HEENT: Normal ENT Inspection Neck: Full Range of Motion, Normal Inspection, Non Tender Respiratory: Chest Non Tender, Lungs Clear, Normal Breath Sounds, No Accessory Muscle Use Cardiovascular: Regular Rate, Rhythm, Normal Peripheral Pulses, Systolic Murmur Gastrointestinal: Non Tender, Soft Extremity: Normal Range of Motion Neurologic/Psychiatric: Alert, Oriented x3, No Motor/Sensory Deficits Skin: Normal Color Progress/Results/Core Measures Results/Orders Lab Results Laboratory Tests Test 04/18/22 14:45 04/18/22 15:00 04/18/22 16:19 Range/Units White Blood Count 7.7 4.3-11.0 10^3/uL Red Blood Count 4.99 4.30-5.52 10^6/uL Hemoglobin 15.4 13.3-17.7 g/dL Hematocrit 45 40-54 % Mean Corpuscular Volume 89 80-99 fL Mean Corpuscular Hemoglobin 31 25-34 pg Mean Corpuscular Hemoglobin Concent 35 32-36 g/dL Red Cell Distribution Width 11.9 10.0-14.5 % Platelet Count 185 130-400 10^3/uL Mean Platelet Volume 9.8 9.0-12.2 fL Immature Granulocyte % (Auto) 1 % Neutrophils (%) (Auto) 69 42-75 % Lymphocytes (%) (Auto) 18 12-44 % Monocytes (%) (Auto) 10 0-12 % Eosinophils (%) (Auto) 2 0-10 % Basophils (%) (Auto) 1 0-10 % Neutrophils # (Auto) 5.3 1.8-7.8 10^3/uL Lymphocytes # (Auto) 1.4 1.0-4.0 10^3/uL Monocytes # (Auto) 0.8 0.0-1.0 10^3/uL Eosinophils # (Auto) 0.2 0.0-0.3 10^3/uL Basophils # (Auto) 0.0 0.0-0.1 10^3/uL Immature Granulocyte # (Auto) 0.1 0.0-0.1 10^3/uL Prothrombin Time 13.8 12.2-14.7 SEC INR Comment 1.0 0.8-1.4 Activated Partial Thromboplast Time 27 24-35 SEC D-Dimer <= 0.27 0.00-0.49 UG/ML Sodium Level 135 135-145 MMOL/L Potassium Level 4.4 3.6-5.0 MMOL/L Chloride Level 102 98-107 MMOL/L Carbon Dioxide Level 24 21-32 MMOL/L Anion Gap 9 5-14 MMOL/L Blood Urea Nitrogen 20 H 7-18 MG/DL Creatinine 1.12 0.60-1.30 MG/DL Estimat Glomerular Filtration Rate 73 BUN/Creatinine Ratio 18 Glucose Level 277 H 70-105 MG/DL Calcium Level 9.7 8.5-10.1 MG/DL Corrected Calcium 9.5 8.5-10.1 MG/DL Magnesium Level 1.8 1.6-2.4 MG/DL Total Bilirubin 0.4 0.1-1.0 MG/DL Aspartate Amino Transf (AST/SGOT) 24 5-34 U/L Alanine Aminotransferase (ALT/SGPT) 40 0-55 U/L Alkaline Phosphatase 78 40-136 U/L Troponin I < 0.028 < 0.028 <0.028 NG/ML B-Type Natriuretic Peptide 13.5 <100.0 PG/ML Total Protein 6.9 6.4-8.2 GM/DL Albumin 4.3 3.2-4.5 GM/DL Urine Color YELLOW Urine Clarity CLEAR Urine pH 5.5 5-9 Urine Specific [place] >=1.030 1.016-1.022 Urine Protein NEGATIVE NEGATIVE Urine Glucose (UA) 3+ H NEGATIVE Urine Ketones NEGATIVE NEGATIVE Urine Nitrite NEGATIVE NEGATIVE Urine Bilirubin NEGATIVE NEGATIVE Urine Urobilinogen 0.2 < = 1.0 MG/DL Urine Leukocyte Esterase NEGATIVE NEGATIVE Urine RBC (Auto) NEGATIVE NEGATIVE Urine RBC NONE /HPF Urine WBC NONE /HPF Urine Squamous Epithelial Cells RARE /HPF Urine Crystals NONE /LPF Urine Bacteria TRACE /HPF Urine Casts PRESENT /LPF Urine Hyaline Casts RARE /LPF Urine Mucus NEGATIVE /LPF Urine Culture Indicated NO Urine Opiates Screen NEGATIVE NEGATIVE Urine Oxycodone Screen NEGATIVE NEGATIVE Urine Methadone Screen NEGATIVE NEGATIVE Urine Propoxyphene Screen NEGATIVE NEGATIVE Urine Barbiturates Screen NEGATIVE NEGATIVE Ur Tricyclic Antidepressants Screen NEGATIVE NEGATIVE Urine Phencyclidine Screen NEGATIVE NEGATIVE Urine Amphetamines Screen NEGATIVE NEGATIVE Urine Methamphetamines Screen NEGATIVE NEGATIVE Urine Benzodiazepines Screen NEGATIVE NEGATIVE Urine Cocaine Screen NEGATIVE NEGATIVE Urine Cannabinoids Screen NEGATIVE NEGATIVE My Orders Orders - JULIANO EAGLE MD Ekg Tracing (04/18/22 14:34) Cbc With Automated Diff (04/18/22 14:44) Magnesium (04/18/22 14:44) Chest 1 View, Ap/Pa Only (04/18/22 14:44) Ekg Tracing (04/18/22 14:44) Comprehensive Metabolic Panel (04/18/22 14:44) Protime With Inr (04/18/22 14:44) Partial Thromboplastin Time (04/18/22 14:44) Monitor-Rhythm Ecg Trace Only (04/18/22 14:44) Ed Iv/Invasive Line Start (04/18/22 14:44) Bnp Sarbjit (04/18/22 14:44) Fibrin Degradation Products (04/18/22 14:44) Troponin I Sarbjit (04/18/22 14:44) Aspirin Chewable Tablet (Baby Aspirin Ch (04/18/22 14:45) Drug Screen Stat (Urine) (04/18/22 14:45) Ua Culture If Indicated (04/18/22 14:45) Troponin I Sarbjit (04/18/22 15:52) Ekg Tracing (04/18/22 15:53) Medications Given in ED Current Medications Medications Dose Ordered Sig/Scooter Route Start Time Stop Time Status Last Admin Dose Admin Aspirin 324 mg ONCE ONCE PO 04/18/22 14:45 04/18/22 14:46 DC 04/18/22 14:57 324 MG Vital Signs/I&O 04/18/22 14:35 Temp 36.5 Pulse 70 Resp 16 B/P (MAP) 165/86 (112) Pulse Ox 97 O2 Delivery Room Air Blood Pressure Mean: 112 Progress Progress Note : Progress Note 1. ACS RULE OUT: STABLE ANGINA: - CXR: Unremarkable -Labs normal -Troponin x2 undetected, EKG x2 nonischemic -Follow-up with cardiology in the next 3 to 7 days. Patient will need stress test and echo -Follow-up with PCP within the next 7 days -Advised to continue daily aspirin -Prescription given for sublingual nitro with instructions how to take it -The patient was seen in the ED, and treated appropriately to presentation at a specific point in time. Patient is informed that there is a possibility that disease and illness can evolve and change in acuity rapidly or slowly after patient is discharged from the ER. Precautionary advice given to the patient for immediate return to ER if symptoms worsen or do not resolve, and to seek emergency care sooner rather than later. Pt also advised on the importance of PCP follow up and compliance with management and follow up plan with PCP and/or specialist, as this is part of the management plan. Pt verbally expressed understanding. Diagnostic Imaging Diagonstic Imaging: Xray Plain Films/CT/US/NM/MRI: chest Comments [facility] [employer] [facility] [place], [place] NAME: [address] [facility] REC#: [id number] PT STATUS: REG ER : 1955 PHYSICIAN: JULIANO EAGLE MD ADMIT DATE: 04/18/22/ER Signed Date of Exam:04/18/22 CHEST 1 VIEW, AP/PA ONLY INDICATION: Chest pain. Frontal chest obtained at 2:47 p.m. and compared with 09/26/2018. FINDINGS: Heart is borderline in size. There is poor inspiration, but there is minimal bibasilar atelectasis. There is no pneumothorax or pleural fluid or camilo consolidation. IMPRESSION: Borderline heart size. Very poor inspiration with mild bibasilar atelectasis. No overt consolidation or pleural fluid. Dictated by: Dictated on workstation # [id number] Dict: 04/18/22 1459 Trans: 04/18/22 1700 [id number] Interpreted by: MINI POTTS MD Electronically signed by: MINI POTTS MD 04/18/22 1700 Departure Impression Primary Impression: Ruled out for myocardial infarction Additional Impression: Stable angina Disposition: 01 HOME, SELF-CARE Condition: Improved Departure-Patient Inst. Referrals: NO,LOCAL PHYSICIAN (PCP/Family) Primary Care Physician Patient Instructions: Medicines for Angina (Chest Pain), Aspirin to Prevent Heart Attacks and Cancer, Treatment Choices for Angina (Chest Pain) Add. Discharge Instructions: -Follow-up with cardiology in the next 3 to 7 days. Patient will need stress test and echo -Follow-up with PCP within the next 7 days -Advised to continue daily aspirin -Prescription given for sublingual nitro with instructions how to take it Scripts Nitroglycerin (Nitroglycerin) 0.4 Mg Tab.subl 0.4 MG SL Q15M for Chest Pain for 1 Day, #4 TAB Prov: JULIANO EAGLE MD 04/18/22 JULIANO EAGLE MD Apr 18, 2022 15:19
[2022-04-18 15:24] LABS: AMPHETAMINE SCREEN, URINE NEGATIVE (NEGATIVE); BARBITURATE SCREEN URINE NEGATIVE (NEGATIVE); BENZODIAZEPINES SCREEN URINE NEGATIVE (NEGATIVE); CANNABINOID SCREEN, URINE NEGATIVE (NEGATIVE); COCAINE SCREEN URINE NEGATIVE (NEGATIVE); METHADONE STAT NEGATIVE (NEGATIVE); OPIATE SCREEN URINE NEGATIVE (NEGATIVE); OXYCODONE STAT NEGATIVE (NEGATIVE); PROPOXYPHENE STAT NEGATIVE (NEGATIVE); TRICYCLIC ANTIDEPRESSANTS SCRE NEGATIVE (NEGATIVE)
[2022-04-18 15:26] LABS: BACTERIA,URINE TRACE /HPF; HYALINE CASTS, URINE RARE /LPF; SQUAMOUS EPITHELIAL CELL,UR RARE /HPF
[2022-04-18] MEDS ORDERED: NITR0.4T42 SL ×2 (17:46→17:56)
[2022-04-18 18:04] VITALS: BP 165/97
== END 2022-04-18 18:00 | disposition home or self-care (01) ==
LOC: EDUNIT# 14:33 → ER 14:36
DX: I20.9 Angina pectoris, unspecified (principal); E66.9 Obesity, unspecified; Z68.35 Body mass index [BMI] 35.0-35.9, adult; Z95.5 Presence of coronary angioplasty implant and graft; Z79.82 Long term (current) use of aspirin; Z99.89 Dependence on other enabling machines and devices
CPT/HCPCS: 36415; 71045; 80053; 80306; 81000; 83735; 83880; 84484; 85025; 85379; 85610; 85730; 93005; 93041

== ENCOUNTER → 2022-05-07 | Outpatient (CLI) | payer MEDICARE ==
[~2022-05-07] VITALS: Ht 193 cm; Wt 128.0 kg
[~2022-05-07] MED LIST changes: +CATHETER FLUSH 10 ML SYR IVP PRN; +NITR0.4T42 SL
[2022-05-07 08:48] VITALS: BP 137/70
--- NOTE | 2022-05-07 11:05 | Cardiology Stress Test Report ---
Stress Test Report Date of Procedure/Referring: Date of Procedure: May 07, 2022 PCP No,Local Physician Admitting Physician Admitting Physician: Attending Physician: Nicko Lynch MD Baseline Heart Rate: 68 Baseline Blood Pressure: Blood Pressure Systolic: 137 Blood Pressure Diastolic: 70 Vital Signs Date Time Temp Pulse Resp B/P (MAP) Pulse Ox O2 Delivery O2 Flow Rate FiO2 05/07/22 08:48 68 137/70 (92) Baseline Vital Signs Vital Signs Date Time Temp Pulse Resp B/P (MAP) Pulse Ox O2 Delivery O2 Flow Rate FiO2 05/07/22 08:48 68 137/70 (92) Baseline EKG: Baseline EKG: NSR Summary: After explaining the procedure and details to the patient, he signed the consent and was brought to the stress nuclear laboratory. Patient exercised on standard Francois protocol, EKG, heart rate and blood pressure were monitored continuously, resting and stress doses of radio tracer were injected, imaging was acquired and reviewed in the short axis, horizontal long axis and vertical long axis views Patient was able to exercise for a total of 8 minutes on Francois protocol, METs 86 Maximum heart rate 134 Maximum blood pressure 206/67 Stress EKG, Minimal nondiagnostic changes Recovery EKG, Return to baseline TID: 0.97 SSS: 4 SDS: 4 EF: 50 Conclusion: 1. Fair exercise tolerance for a total of 8 minutes on standard Francois protocol, 9.7 METS achieving 86% of maximal expected heart rate 2. Appropriate heart rate response to exercise with severe hypertensive response to exercise with peak blood pressure 206/67 return to baseline during recovery 3. Nondiagnostic EKG changes with exercise return to baseline during recovery 4. Diaphragmatic attenuation with mild ischemia involving the mid to apical inferior wall and inferolateral wall 5. Normal left ventricular size, ejection fraction 50% NICKO LYNCH MD May 07, 2022 11:05
== END ==
LOC: CARD 08:00
PROVIDERS: ATTEND Internal Medicine Cardiovascular Disease
DX: I10 Essential (primary) hypertension (principal); I25.10 Atherosclerotic heart disease of native coronary artery without angina pectoris
CPT/HCPCS: 78452; 93017; A9502

== ENCOUNTER → 2022-05-10 | Outpatient (CLI) | payer MEDICARE ==
[~2022-05-10] MED LIST changes: -CATHETER FLUSH 10 ML SYR IVP PRN; +EPTIFIBATIDE BOLUS 0 ML IV ONE; +HEParin (CATH LAB) 0 ML IV ONE; +HEParin 1000 UNIT/ML (10ML VIAL) FOR BOLUS ONE; +LIDOCAINE 1% INJ 30 ML (XYLOCAINE) VIAL ONE; +MIDAZOLAM 5 MG/5 ML (VERSED) VIAL ONE; +NS IV 1000 ML 0 ML ONE; +fentaNYL INJ 100 MCG/2 ML AMP ONE
== END ==
LOC: CARD 13:18
PROVIDERS: ATTEND Internal Medicine Cardiovascular Disease
DX: I11.9 Hypertensive heart disease without heart failure (principal); I25.10 Atherosclerotic heart disease of native coronary artery without angina pectoris
CPT/HCPCS: 93306

== ENCOUNTER → 2022-10-12 | Outpatient (CLI) | payer MEDICARE ==
[~2022-10-12] MED LIST changes: -EPTIFIBATIDE BOLUS 0 ML IV ONE; -HEParin (CATH LAB) 0 ML IV ONE; -HEParin 1000 UNIT/ML (10ML VIAL) FOR BOLUS ONE; -LIDOCAINE 1% INJ 30 ML (XYLOCAINE) VIAL ONE; -MIDAZOLAM 5 MG/5 ML (VERSED) VIAL ONE; -NS IV 1000 ML 0 ML ONE; -fentaNYL INJ 100 MCG/2 ML AMP ONE
--- NOTE | 2022-10-12 13:10 | Diagnostic Imaging Report ---
PROCEDURE: CT chest without contrast. TECHNIQUE: Multiple contiguous axial images were obtained through the chest without the use of intravenous contrast. Auto Exposure Controls were utilized during the CT exam to meet ALARA standards for radiation dose reduction. INDICATION: Epigastric/chest pain unsure if this secondary to hiatal hernia or cardiac in nature. Prior angioplasty. EXAMINATION: CT chest without contrast 10/12/2022. COMPARISON: None FINDINGS: Scattered areas of atelectasis or scarring noted throughout the lungs. No suspicious nodules appreciated. There is a focal area of nonspecific pleural thickening along the lateral aspect of the right upper chest. No pericardial or pleural effusions. No adenopathy. Incidentally noted is bilateral gynecomastia. There is atherosclerotic disease. Visualized upper abdomen demonstrate mild age indeterminant fat stranding about both kidneys with hypodensities in kidneys poorly characterized without contrast. The remaining upper abdominal structures demonstrate no gross acute abnormalities. There is mild loss of height along several thoracic vertebral bodies likely chronic. No displaced fractures identified. IMPRESSION: 1. Areas of scar or atelectasis scattered throughout the lungs with no acute abnormality appreciated. 2. Indeterminate fat stranding about both kidneys incompletely imaged with low density lesions in the kidneys possibly cysts but poorly characterized without contrast. Dictated by: Dictated on workstation # [id number]
== END ==
LOC: RAD 10:55
PROVIDERS: ATTEND Internal Medicine Cardiovascular Disease
DX: N28.9 Disorder of kidney and ureter, unspecified (principal); R07.9 Chest pain, unspecified
CPT/HCPCS: 71250